=== PATIENT | female | born 1985 | race Caucasian/White ===

== ENCOUNTER 2018-06-13 10:04 | Emergency (ER) | payer OTHER ==
[~2018-06-13] VITALS: Ht 152.4 cm; Wt 68.0 kg
[~2018-06-13 10:04] MED LIST: CALC-143 PO; FERR240T9 PO; PRENAT PO
[2018-06-13 10:18] VITALS: Ht 152.4 cm; Wt 68.0 kg
[2018-06-13] MEDS ORDERED: KETOROLAC 30 MG INJ IV STA (11:23)
--- NOTE | 2018-06-13 11:29 | ERD ---
ER Documentation Chief Complaint Chief Complaint Complains of abdominal pain since this am HPI Patient is a 33-year-old female status post , presents the ER for concerns of right lower quadrant abdominal pain for the last 4 days. Patient states pain is localized to the right lower quadrant. She states 1 month ago she did have similar pain which resolved by itself. Patient denies any fevers, chills, nausea, vomiting, diarrhea. Patient denies any dysuria, frequency, urgency or hematuria. Patient denies any recent travel. No sick contacts. Patient denies any chest pain, shortness of breath or LOC. ROS All systems reviewed and are negative except as per history of present illness. Medications Home Meds Active Scripts Ondansetron (Ondansetron Odt) 4 Mg Tab.rapdis, 4 MG PO Q6H PRN for NAUSEA AND/OR VOMITING, #10 TAB Prov:JAMIE CASTILLO PA-C 06/13/18 Ibuprofen* (Motrin*) 600 Mg Tab, 600 MG PO Q6, #30 TAB Prov:JAMIE CASTILLO PA-C 06/13/18 Reported Medications Ferrous Gluconate (Iron) 1 Tab Tablet, 1 TAB PO, TAB 05/06/15 Calcium Citrate/Vitamin D (Citracal-Vitamin D 200 MG-250) 1 Each Tablet, 1 EACH PO BID, TAB 05/06/15 Multivit/Min/Fol Ac/Iron/Pren* ( S*) 1 Tab Tab, 1 TAB PO DAILY, TAB 05/06/15 Allergies Allergies: Coded Allergies: No Known Allergy (Unverified , 05/06/15) FmHx Family History: No diabetes Physical Exam Vitals Vital Signs Date Temp Pulse Resp B/P (MAP) Pulse Ox O2 O2 Flow FiO2 Time Delivery Rate 06/13/18 98.4 73 20 116/64 98 10:18 (81) Physical Exam GENERAL: Well-developed, well-nourished female. Appears in no acute distress. HEAD: Normocephalic, atraumatic. EYES: Pupils are equally reactive bilaterally. EOMs grossly intact. No conjunctival erythema. ENT: Moist mucous membranes. No uvula deviation. No kissing tonsils. NECK: Supple. No meningismus. Normal range of motion of the neck. LUNG: Clear to auscultation bilaterally. No rhonchi, wheezing, rales or coarse breath sounds. HEART: Regular rate and rhythm. No murmurs, rubs or gallops. ABDOMEN: Soft, and nondistended. Tender to palpation of RLQ. Positive bowel sounds in all four quadrants. No rebound tenderness, no guarding. (-) McBurney's point tenderness. No CVA tenderness. EXTREMITIES: Equal pulses bilaterally. No peripheral clubbing, cyanosis or edema. No unilateral leg swelling. NEUROLOGIC: Alert and oriented. Moving all four extremities without any difficulty. Normal speech. Steady gait. SKIN: Normal color. Warm and dry. No rashes or lesions. Result Diagram: 06/13/18 1143 06/13/18 1143 Results 24 hrs Laboratory Tests Test 06/13/18 11:43 06/13/18 11:51 White Blood Count 7.3 10^3/ul Red Blood Count 4.68 10^6/ul Hemoglobin 13.4 g/dl Hematocrit 41.1 % Mean Corpuscular Volume 87.8 fl Mean Corpuscular Hemoglobin 28.6 pg Mean Corpuscular Hemoglobin Concent 32.6 g/dl Red Cell Distribution Width 13.4 % Platelet Count 308 10^3/UL Mean Platelet Volume 10.1 fl Immature Granulocytes % 0.100 % Neutrophils % 62.6 % Lymphocytes % 28.8 % Monocytes % 6.8 % Eosinophils % 1.1 % Basophils % 0.6 % Nucleated Red Blood Cells % 0.0 /100WBC Immature Granulocytes # 0.010 10^3/ul Neutrophils # 4.5 10^3/ul Lymphocytes # 2.1 10^3/ul Monocytes # 0.5 10^3/ul Eosinophils # 0.1 10^3/ul Basophils # 0.0 10^3/ul Nucleated Red Blood Cells # 0.0 10^3/ul Urine Color STRAW Urine Clarity CLEAR Urine pH 8.0 Urine Specific [place] 1.008 Urine Ketones NEGATIVE mg/dL Urine Nitrite NEGATIVE mg/dL Urine Bilirubin NEGATIVE mg/dL Urine Urobilinogen NEGATIVE mg/dL Urine Leukocyte Esterase NEGATIVE Edwar/ul Urine Hemoglobin NEGATIVE mg/dL Urine Glucose NEGATIVE mg/dL Urine Total Protein NEGATIVE mg/dl Sodium Level 140 mmol/L Potassium Level 4.3 mmol/L Chloride Level 104 mmol/L Carbon Dioxide Level 27 mmol/L Anion Gap 9 Blood Urea Nitrogen 9 mg/dl Creatinine 0.49 mg/dl Est Glomerular Filtrat Rate mL/min > 60 mL/min Glucose Level 96 mg/dl Calcium Level 9.5 mg/dl Total Bilirubin 0.1 mg/dl Direct Bilirubin 0.00 mg/dl Indirect Bilirubin 0.1 mg/dl Aspartate Amino Transf (AST/SGOT) 17 IU/L Alanine Aminotransferase (ALT/SGPT) 12 IU/L Alkaline Phosphatase 82 IU/L Total Protein 8.0 g/dl Albumin 4.3 g/dl Globulin 3.70 g/dl Albumin/Globulin Ratio 1.16 Lipase 69 U/L POC Beta HCG, Qualitative NEGATIVE Current Medications Medications Dose Sig/Noni Start Time Status Last (Trade) Ordered Route PRN Stop Time Admin Dose Reason Admin Ketorolac 30 mg ONCE STAT 06/13/18 DC 06/13/18 Tromethamine IV 11:23 06/13/18 11:55 (Toradol) 11:27 Procedures/MDM ED COURSE: The patient was stable throughout ED course. I kept the patient and/or family informed of laboratory and diagnostic imaging results throughout the ED course. DIAGNOSTIC IMAGING: Read by radiologist. Patient: DONNA FENG : 1985 Age: 33 Sex: F MR #: [id number] DOS: 06/13/18 1123 Ordering MD: JAMIE CASTILLO PA-C Location: [facility] Room/Bed: PROCEDURE: Transabdominal US Pelvis. CLINICAL INDICATION: Left lower quadrant pain TECHNIQUE: Sonographic evaluation of the pelvis was performed utilizing transabdominal technique. Curved array transabdominal transducer technique was utilized. Images were reviewed on the high-resolution PACS workstation. COMPARISON: No prior studies are available for comparison. FINDINGS: The uterus is normal in size, echogenicity, and morphology and measures 7.8 x 4.4 x 4.5 cm. The endometrium is normal measuring 7.4 mm. The right ovary measures 4.9 cm in dimension. The left ovary measures 8.8 cm in dimension. The ovaries are symmetric in size, echogenicity, and morphology. There are no adnexal masses. There is no significant free fluid in the pelvis. No other inc idental abnormality is identified. IMPRESSION: 1. Unremarkable transabdominal ultrasound of the pelvis. RPTAT: GG .Humphrey Rodney MD, Date Time Electronically viewed and signed by .Humphrey Rodney MD, MD on 06/13/2018 13:23 .L/ Radiology Main Line: [phone] DIAGNOSTIC IMAGING REPORT Patient: DONNA FENG : 1985 Age: 33 Sex: F MR #: [id number] DOS: 06/13/18 1340 Ordering MD: JAMIE CASTILLO PA-C Location: [facility] Room/Bed: PROCEDURE: CT Abdomen and Pelvis without contrast. CLINICAL INDICATION: 33 year-old female RLQ pain TECHNIQUE: Routine abdominopelvic CT was performed without intravenous contrast. Coronal and sagittal reformats were provided. DICOM images are available. Radiation dose: CTDI (mGy): 13.87 mGy and DLP(mGy-cm): 696.25 mGy.cm One or more of the following dose reduction techniques were used: - Automated exposure control. - Adjustment of the mA and/or kV according to patient size. - Use of iterative reconstruction technique. Oral contrast was not administered. COMPARISON: None. FINDINGS: Lower Thorax: Visualized lung bases are clear. Liver: The nonenhanced liver is normal in overall morphology and attenuation. No focal mass lesion identified, allowing for absence of contrast or multiphase imaging. Biliary/gallbladder: Normal CT appearance of the gallbladder without calcified gallstones. No evidence of intra or extrahepatic biliary duct dilatation. Pancreas: Overall normal morphology and attenuation. No evidence of pe ripancreatic fluid or stranding. Stomach/duodenum: The stomach is partially collapsed, but grossly unremarkable. Spleen: Normal in size and morphology. Adrenals: No adrenal masses identified. Kidneys: Overall symmetric shape, size, and attenuation. No evidence of obstructing urolithiasis or hydroureteronephrosis. Retroperitoneum: Mild atherosclerotic calcifications of the abdominal aorta. No evidence of aneurysm. No evidence of retroperitoneal adenopathy. Mesentery/Peritoneum: No evidence of free fluid or air. No mesenteric adenopathy identified. Hollow viscera: There is inflammatory rim measuring approximately 16 mm in diameter with central low attenuation focus consistent with fat, which is adjacent to the ascending colon just above the cecum. There is mild inflammatory thickening of the adjacent peritoneal lining. The appendix is identified in close vicinity with the tip of the appendix terminating in close vicinity. There is no evidence of fluid distension of the appendix or pericecal inflammatory changes. There is formed stool within the colonic loops. Pelvis/Reproductive organs: No pelvic masses or sidewall adenopathy identified. There is trace free fluid in the cul-de-sac, which can be physiologic given the patient's age. Musculoskeletal: No osseous destructive lesions identified. IMPRESSION: 16 mm focus with inflammatory rim and central fat, adjacent to the ascending colon and likely representing epiploic appendagitis. Though the appendix courses in close vicinity, the appendix appears normal caliber without fluid distension, and removed from the epicenter of the inflammatory changes. Diverticulitis is also less likely given the sparing of the colonic wall. If the patient fails conservative treatment, follow-up abdominal pelvic CT with intravenous and oral contrast can be performed. These findings were discussed with ED physician assistant brand manager Jamie Castillo Pa-C at 06/13/2018 2:49:42 PM. RPTAT: EE Physician Abbey Arredondo Date Time Electronically viewed and signed by Oumou Turk Physician on 06/13/2018 15:10 rP/ CC: JAMIE CASTILLO PA-C [id number] MEDICATION GIVEN: Toradol, Zofran Patient tolerated medication well with no adverse reactions. Patient reported improvement in pain. MEDICAL DECISION MAKING: This is a 33-year-old female status post , presents the ER for concerns of right lower quadrant abdominal pain for the last 4 days. Vital signs were reviewed. Patient is afebrile. IV line was established. Blood work was obtained. CBC showed no evidence of systemic infection or severe anemia. CMP showed no evidence of electrolyte abnormalities, severe acidosis, alkalosis, renal failure, or liver disease. Lipase showed no evidence of acute pancreatitis. UA showed no evidence of acute infection or hematuria. Urine test was negative. Pelvic ultrasound was unremarkable. CT imaging of the abdomen and pelvis showed concerns of epiploic appendagitis. At this time, patient's presentation is most consistent with epiploic appendagitis. Differential diagnosis included was not limited to acute coronary syndrome, AAA, mesenteric ischemia, lower lobe pneumonia, DKA, bowel perforation, cholecystitis, choledocholithiasis, ascending cholangitis, hepatic abscess, pancreatitis, PUD, gastritis, GERD, splenic rupture, diverticulitis, UTI, pyelonephritis, nephrolithiasis, appendicitis, constipation, , ectopic , PID, ovarian torsion or tubo-ovarian abscess. Patient given strict return precautions. Patient was nontoxic, [id number] prior to discharge. PRESCRIPTIONS: Ibuprofen, Zofran DISCHARGE: At this time, patient is stable for discharge and outpatient management. I have instructed the patient to follow-up with his/her primary care physician in 1-2 days. I have instructed the patient to promptly return to the ER at any time for any new or worsening symptoms including increased pain, nausea, vomiting, diarrhea, fever, weakness or LOC. The patient and/or family expressed understanding of and agreement with this plan. All questions were answered. Home care instructions were provided. Disclaimer: Inadvertent spelling and grammatical errors are likely due to EHR/dictation software use and do not reflect on the overall quality of patient care. Also, please note that the electronic time recorded on this note does not necessarily reflect the actual time of the patient encounter. Departure Diagnosis: Primary Impression: Epiploic appendagitis Condition: Fair Patient Instructions: Abdominal Pain, Unknown Cause, (Female), Pelvic Pain, Unknown Cause Referrals: [facility] YOU HAVE RECEIVED A MEDICAL SCREENING EXAM AND THE RESULTS INDICATE THAT YOU DO NOT HAVE A CONDITION THAT REQUIRES URGENT TREATMENT IN THE EMERGENCY DEPARTMENT. FURTHER EVALUATION AND TREATMENT OF YOUR CONDITION CAN WAIT UNTIL YOU ARE SEEN IN YOUR DOCTORS OFFICE WITHIN THE NEXT 1-2 DAYS. IT IS YOUR RESPONSIBILITY TO MAKE AN APPOINTMENT FOR FOLOW-UP CARE. IF YOU HAVE A PRIMARY DOCTOR --you should call your primary doctor and schedule an appointment IF YOU DO NOT HAVE A PRIMARY DOCTOR YOU CAN CALL OUR PHYSICIAN REFERRAL HOTLINE AT IF YOU CAN NOT AFFORD TO SEE A PHYSICIAN YOU CAN CHOSE FROM THE FOLLOWING [facility] [address] [facility]. [facility] [address] [facility] [address] [facility] [address] [facility] [address] [facility]. [facility]. [address] [facility]. [facility] YOU HAVE RECEIVED A MEDICAL SCREENING EXAM AND THE RESULTS INDICATE THAT YOU DO NOT HAVE A CONDITION THAT REQUIRES URGENT TREATMENT IN THE EMERGENCY DEPARTMENT. FURTHER EVALUATION AND TREATMENT OF YOUR CONDITION CAN WAIT UNTIL YOU ARE SEEN IN YOUR DOCTORS OFFICE WITHIN THE NEXT 1-2 DAYS. IT IS YOUR RESPONSIBILITY TO MAKE AN APPOINTMENT FOR FOLOW-UP CARE. IF YOU HAVE A PRIMARY DOCTOR --you should call your primary doctor and schedule and appointment IF YOU DO NOT HAVE A PRIMARY DOCTOR YOU CAN CALL OUR PHYSICIAN REFERRAL HOTLINE AT . IF YOU CAN NOT AFFORD TO SEE A PHYSICIAN YOU CAN CHOSE FROM THE FOLLOWING [facility] INSTITUTIONS: [facility] [address] [place] [address] [facility] [address] [place] [address] [facility] + [facility] [address] [place] [address] Additional Instructions: Call your primary care doctor TOMORROW for an appointment during the next 1-2 days.See the doctor sooner or return here if your condition worsens before your appointment time. JAMIE CASTILLO PA-C Jun 13, 2018 11:29
[2018-06-13] MEDS ORDERED: ONDA4TAB14 PO (14:51)
[2018-06-13] MEDS ORDERED: IBUP-1542 PO (14:51)
[2018-06-13 15:38] VITALS: BP 112/54; PULSE 62; RESP 17
== END 2018-06-13 15:39 | disposition home or self-care (01) ==
LOC: FTE 10:04
DX: K63.89 Other specified diseases of intestine (principal); R10.2 Pelvic and perineal pain
CPT/HCPCS: 36415; 74176; 76856; 80053; 81003; 81025; 83690; 85025; 96374; J1885; Z7502